=== PATIENT | male | born 1975 | race Caucasian/White ===

== ENCOUNTER 2017-01-24 14:53 | Outpatient (CLI) | payer OTHER ==
[2014-08-07 11:59] VITALS: BMI 28.5
--- NOTE | 2017-01-24 21:18 | MRI ---
EXAM: MRI left knee without contrast. HISTORY: Left knee pain. Swelling. No left knee surgery reported.. TECHNIQUE: Using a local extremity coil on a high field strength magnet multiplanar multisequence ma gnet resonance imaging was performed of the left knee without intravenous or intra-articular gadolini um contrast.. COMPARISON: MRI left knee 05/15/2013. FINDINGS: I do not have prior radiographs of the left knee available for comparison at the time of t his dictation. Within the medial compartment the medial meniscus is intact without discrete surfacing meniscal tear. The medial compartment cartilage relatively congruent without focal underlying subchondral edema. Within the lateral compartment the lateral meniscus is intact without discrete surfacing meniscal tea r. The lateral compartment cartilage congruent without underlying subchondral edema. Early producti ve osteophyte formation. Within the patellofemoral compartment the patella seated. Pre patellar/pretibial superficial soft ti ssue edema/swelling. Superimposed component of more organized prepatellar/pretibial bursitis. The pa tellar cartilage congruent without underlying subchondral edema. Early patellofemoral compartment pr oductive osteophyte formation. Over the inferior medial trochlear groove there is a punctate focus o f subchondral plate invagination with some trace remodeling. There is over the inferior aspect of th e central to lateral trochlear groove chondrosis with cartilage attenuation/ulceration. An approxima te 8 mm area of subchondral remodeling/cyst formation. Small left effusion. Prominent plica. No large osteochondral loose bodies. Intact anterior and pos terior cruciate ligaments. The extensor mechanism is intact. Proximal patellar tendinosis. The med ial collateral ligament as well as lateral collateral ligament complex and posterolateral corner inta ct. Small posterior joint extension/popliteal cyst.. IMPRESSION: No discrete surfacing meniscal tear identified. Pretibial/prepatellar superficial soft tissue edema/swelling with superimposed more organized pretibi al/prepatellar bursitis. Patellofemoral compartment dominant osteoarthrosis. Areas of chondrosis with cartilage attenuation/u lceration over the trochlear groove. Small left effusion. Prominent plica. Small posterior joint extension/popliteal cyst. Intact cruciate and collateral ligaments. Proximal patellar tendinosis. Recommendation is obtainment and correlation with plain film radiographs of the left knee as none are available for comparison at the time of this dictation.
== END 2017-01-24 14:54 | disposition home or self-care (01) ==
LOC: RAD 14:53
PROVIDERS: ATTEND Nurse Practitioner Family
DX: M25.562 Pain in left knee (principal)